=== PATIENT | female | born 1960 | race Caucasian/White ===

== ENCOUNTER 2021-04-16 08:35 | Day surgery (SDC) | payer BC ==
[2021-04-14 19:43] VITALS: BMI 27.0
[2021-04-16] MEDS: CYCLOPENTOLATE 2% OPHTH SOLN 2 ML BOTTLE ONE ×3 (09:15→09:25)
[2021-04-16] MEDS: TROPICAMIDE 1% OPHTH SOLN 15 ML BOTTLE ONE ×3 (09:15→09:25)
[2021-04-16] MEDS: CIPROFLOXACIN 0.3% EYE DROPS 5 ML BOTTLE ONE ×3 (09:15→09:25)
[2021-04-16] MEDS: PHENYLEPHRINE 2.5% OPHTH SOLN 15 ML BOTTLE ONE ×3 (09:15→09:25)
[2021-04-16 09:18] VITALS: BP 127/63; PULSE 76; TEMP 98.7
[2021-04-16] MEDS ORDERED: MIDAZOLAM HCL 2 MG/2 ML SINGLE DOSE VIAL ONE ×2 (10:34→10:53)
[2021-04-16] MEDS ORDERED: BSS (NA/CA/MG/K) BALANCED SALT SOLUTION OPHTH SOLN 15 ML BOTTLE ONE (10:38)
[2021-04-16] MEDS ORDERED: CARBACHOL 0.01% INTRA-OCULAR 1.5 ML VIAL ONE (10:38)
[2021-04-16] MEDS ORDERED: NEO/POLYMYX B SULF/DEXAMETH OPHTHALMIC 5ML BOTTLE ONE (10:38)
[2021-04-16] MEDS ORDERED: TETRACAINE 0.5% OPHTH SOLN 2 ML BOTTLE ONE (10:38)
[2021-04-16] MEDS ORDERED: LIDOCAINE 1% P/F 10 MG/ML VIAL ONE (10:38)
[2021-04-16] MEDS ORDERED: KETOROLAC TROMETHAMINE 30 MG/1 ML VIAL ONE (10:52)
== END 2021-04-16 12:20 | disposition home or self-care (01) ==
LOC: FASU 08:35
PROVIDERS: ATTEND Ophthalmology
PROC: 08RJ3JZ Replacement of Right Lens with Synthetic Substitute, Percutaneous Approach (ICD-10-PCS; principal; 2021-04-16 10:55)
DX: H26.8 Other specified cataract (principal)
CPT/HCPCS: 82962

== ENCOUNTER 2021-06-11 09:32 | Day surgery (SDC) | payer BC ==
[2021-06-09 10:15] VITALS: BMI 27.3
[2021-06-11] MEDS: CIPROFLOXACIN 0.3% EYE DROPS 5 ML BOTTLE ONE ×3 (10:05→10:15)
[2021-06-11] MEDS: PHENYLEPHRINE 2.5% OPHTH SOLN 15 ML BOTTLE ONE ×3 (10:05→10:15)
[2021-06-11] MEDS: TROPICAMIDE 1% OPHTH SOLN 15 ML BOTTLE ONE ×3 (10:05→10:15)
[2021-06-11] MEDS: CYCLOPENTOLATE 2% OPHTH SOLN 2 ML BOTTLE ONE ×3 (10:05→10:15)
[2021-06-11] MEDS ORDERED: CARBACHOL 0.01% INTRA-OCULAR 1.5 ML VIAL ONE (10:31)
[2021-06-11] MEDS ORDERED: TETRACAINE 0.5% OPHTH SOLN 2 ML BOTTLE ONE (10:31)
[2021-06-11] MEDS ORDERED: NEO/POLYMYX B SULF/DEXAMETH OPHTHALMIC 5ML BOTTLE ONE (10:31)
[2021-06-11] MEDS ORDERED: BSS (NA/CA/MG/K) BALANCED SALT SOLUTION OPHTH SOLN 15 ML BOTTLE ONE (10:31)
[2021-06-11] MEDS ORDERED: LIDOCAINE 1% P/F 10 MG/ML VIAL ONE (10:31)
[2021-06-11] MEDS ORDERED: MIDAZOLAM HCL 2 MG/2 ML SINGLE DOSE VIAL ONE ×2 (11:33→11:37)
[2021-06-11 13:09] VITALS: TEMP 98.9
[2021-06-11 13:28] VITALS: BP 124/59; PULSE 68
== END 2021-06-11 13:25 | disposition home or self-care (01) ==
LOC: FASU 09:32
PROVIDERS: ATTEND Ophthalmology
PROC: 08RK3JZ Replacement of Left Lens with Synthetic Substitute, Percutaneous Approach (ICD-10-PCS; principal; 2021-06-11 11:39)
DX: H26.8 Other specified cataract (principal)
CPT/HCPCS: 82962